=== PATIENT | female | born 1955 | race Caucasian/White ===

== ENCOUNTER 2023-05-14 08:36 | Outpatient (CLI) | payer OTHER, MEDICARE, SELFPAY | END 2023-05-14 08:37 | disposition home or self-care (01) | LOC: NFLDREF 05-15 13:47 | PROVIDERS: PCP Internal Medicine; Referring Provider Internal Medicine; Visit Provider Internal Medicine | DX: E11.9 Type 2 diabetes mellitus without complications (principal); E03.9 Hypothyroidism, unspecified; E66.9 Obesity, unspecified; I10 Essential (primary) hypertension; F41.9 Anxiety disorder, unspecified; E78.5 Hyperlipidemia, unspecified | CPT/HCPCS: 80053; 80061; 82043; 82570; 84443 ==

== ENCOUNTER 2024-03-08 10:02 | Outpatient (CLI) | payer MEDICARE, SELFPAY ==
--- OUTSIDE RECORDS SUMMARY | 2024-03-08 10:05 | XMS_ITS | Clinical Summary ---
Author Name Unknown Organization [facility] Address [place], [place] [address] Care Team Providers Care Piece Dyeing Machine Tender Name Role Phone Unknown, Doctor Primary Care Provider Unavailabl e Allergies Active Allergy Reactions Criticality Noted Date Comments Venom-Honey Bee Edema 03/12/2011 On extremity of sting Levofloxacin Muscle Weakness 09/09/2011 Muscle pain Morphine Itching 01/10/2010 Sulfa (Sulfonamide Antibiotics) Hives 01/10/2010 Medications Medication Sig Dispensed Refills Start Date End Date Status EPINEPHrine (EPIPEN) 0.3 mg/0.3 mL injection Inject 0.3 mg intramuscular one time if needed for Allergic Reaction. 3 mL 3 03/13/2012 Active omega-3 fatty acids-vitamin E (FISH OIL) 1,000 mg cap Take by mouth. 0 07/03/2012 Ac tive Cranberry 400 mg capsule Take by mouth. 0 05/19/2013 Active cholecalciferol (VITAMIN D) 1,000 unit capsule Take 1 capsule by mouth once daily. 0 08/23/2013 Active triamterene-hydrochlo rothiazide, 37.5-25 mg, (DYAZIDE) 37.5-25 mg capsule Take 1 capsule by mouth every morning. 14 capsule 0 11/16/2013 Active fenofibrate nanocrystallized (TRICOR) 145 mg tabletIndications:Hyp erlipidemia TAKE 1 TABLET DAILY WITH A MEAL 90 tablet 1 11/26/2013 Active levothyroxine (SYNTHROID) 50 mcg tabletIndications:Hyp othyroidism TAKE 1 TABLET DAILY (NEED APPOINTMENT BEFORE NEXT REFILL) 90 tablet 1 01/06/2014 Active omeprazole (PRILOSEC) 20 mg capsuleIndications:Ep igastric abdominal pain Take 1 capsule by mouth once daily before a meal. 30 capsule 0 03/07/2014 Active Active Problems Problem Noted Date Diagnosed Date Essential hypertension, benign 07/04/2012 Breast cancer 01/10/2010 Urinary incontinence 01/10/2010 Hypothyroidism 01/10/2010 Hyperlipidemia 01/10/2010 Routine health maintenance 01/10/2010 Overview: Physical Pre op 08/31/2009 Pap 12/21/08 Breast Exam 12/21/08 Mammo-double Mastectomy 2003 Chol 07/10/09 168 LDL 07/10/2009 101 Colonoscopy 09/09/2008 Polyps Immunizations Name Administration Dates Next Due Hepatitis A (Adult) 12/31/1999,12/07/1997 Tdap 10/22/2007 Family History Medical History Relation Name Comments Good Health Father Cancer-breast Mother Hypertension Mother Relation Name Status Comments Father Alive Mother Alive Social History Tobacco Use Types Packs/Day Years Used Date Smoking Tobacco: Never Smokeless Tobacco: Never Tobacco Cessation:Counseling Given: No Alcohol Use Standard Drinks/Week Comments Yes 0 (1 standard drink = 0.6 oz pur e alcohol) Minimal to none Sex and Gender Information Value Date Recorded Sex Assigned at Not on file Gender Identity Not on file Sexual Orientation Not on file Obstetrics History Last Filed Vital Signs Vital Sign Reading Time Taken Comments Blood Pressure 120/88 03/07/2014 9:46 PM CDT Pulse 68 03/07/2014 9:46 PM CDT Temperature 36.9 ??C (98.5 ??F) 03/07/2014 9:46 PM CD T Respiratory Rate 12 03/07/2014 9:46 PM CDT Oxygen Saturation 96% 03/07/2014 9:46 PM CDT Inhaled Oxygen Concentration - - Weight 95.7 kg (211 lb) 03/07/2014 9:46 PM CDT Height 157.5 cm (5' 2.01) 03/07/2014 9:46 PM CD T Body Mass Index 38.58 03/07/2014 9:46 PM CDT Plan of Treatment Health Maintenance Due Date Last Done Comments Depression screening for age 12+ 1968 BMI (ht and wt on same day) for age 18+ 1974 Hepatitis C screening for ag e 18-79 1974 Zoster (shingles) series for age 50+ (1 of 2) 2006 Tetanus booster 10/22/2017 10/22/2007 Lipids for age 45-75 05/24/2018 05/24/2013, 03/13/2012, 03/14/2011, Additional history exists Colonoscopy through age 75 09/09/2018 09/09/2008 DEXA/DXA scan for age 65+ 2021 Pneumococcal series for age 65+ (1 of 1 - PCV) 2021 COVID-19 vaccine series (1 - 2022- season) 2023 Influenza for age 65+ 06/20/2024 Tdap Completed 10/22/2007 Procedures Procedure Name Priority Date/Time Associated Diagnosis Comments LIPID PANEL Routine 05/24/2013 10:58 AM CDT Hyperlipidemia from Last 3 Months or Most Recently Relevant to Health Maintenance Results * (ABNORMAL) LIPID PANEL (05/24/2013 10:58 AM CDT) CHOLESTEROL,TOTA L 195 100 - 199 mg/dL [facility] TRIGLYCERIDES 215(H) <150 mg/dL [facility] HDL CHOLESTEROL 40(L) >40 mg/dL [facility] CHOL/HDL RATIO 4.88(H) <4.50 [facility] NON-HDL CHOLESTEROL 155 Undefined mg/dL [facility] LDL CHOLESTEROL 112 <131 mg/dL [facility] PATIENT STATUS Fasting [facility] Blood specimen (specimen) BLOOD SPECIMEN / Unknown 05/24/2013 10:58 AM CDT 05/24/2013 10:44 AM CDT Jorge Varner MD CHEMISTRY [facility] INTERNAL ZIP [address] [place] [id number] from Last 3 Months or Most Recently Relevant to Health Maintenance Care Teams Piece Dyeing Machine Tender Relationship Specialty Start Date End Date Unknown, Doctor . PCP - General 07/09/18
[2024-03-08 10:53] LABS: Hemoglobin A1C* 9.5 % (0-5.6)
[2024-03-08 12:10] LABS: Creatinine Urine 212.5 mg/dL
[2024-03-08 12:13] LABS: Microalbumin Creatinine Ratio 20 mg/g (0-30); Microalbumin Urine 5 mg/dL
[2024-03-08 13:19] LABS: Albumin* 4.8 g/dL (3.3-5.0); Chloride* 101 mmol/L (96-114); Sodium* 139 mmol/L (135-149)
[2024-03-08 13:20] LABS: Potassium* 4.2 mmol/L (3.6-5.1)
[2024-03-08 13:22] LABS: Alanine Aminotransferase* 37 U/L (4-35); Alkaline Phosphatase* 110 U/L (40-150); Anion Gap 9 mEq/L (7-15); Aspartate Amino Transferase* 50 U/L (12-35); Bilirubin Total* 1.2 mg/dL (0.1-1.5); Blood Urea Nitrogen* 16 mg/dL (7-30); Carbon Dioxide* 29 mmol/L (20-32); Creatinine* 0.7 mg/dL (0.5-1.5); Estimated Glomerular Filt Rate 95 ml/min; Glucose* 287 mg/dL (60-115); Total Protein* 8.5 g/dL (6.0-8.3)
[2024-03-08 13:23] LABS: Calcium* 9.5 mg/dL (8.4-10.6)
[2024-03-09 09:52] LABS: HDL Cholesterol* 37 mg/dL (>=50)
[2024-03-09 09:54] LABS: Cholesterol* 188 mg/dL (90-199); LDL Cholesterol Calculated 105 mg/dL (<100); Triglycerides* 228 mg/dL (40-149)
== END 2024-03-08 10:03 | disposition home or self-care (01) ==
PROVIDERS: PCP Internal Medicine; Visit Provider Internal Medicine
DX: E03.9 Hypothyroidism, unspecified (principal); E11.9 Type 2 diabetes mellitus without complications; E78.5 Hyperlipidemia, unspecified; I10 Essential (primary) hypertension
CPT/HCPCS: 80053; 80061; 82043; 82570; 83036; 84443

== ENCOUNTER 2024-09-24 13:37 | Outpatient (CLI) | payer MEDICARE, SELFPAY ==
--- NOTE | 2024-09-24 14:00 | CRLHL7_ITS ---
For Patients: As a result of the Century Cures Act, medical imaging exams and procedure reports are released immediately into your electronic medical record. You may view this report before your referring provider. If you have questions, please contact your health care provider. Indication: Headaches. Anosmia. Technique: Noncontrast axial CT of the paranasal sinuses with coronal reformats are provided. No comparisons. Findings: The visualized paranasal sinuses are clear. The ostiomeatal complexes are patent bilaterally. The visualized intraorbital contents appear within normal limits. No convincing evidence of suspicious irregularity disrupting the cribriform plate. Impression: Unremarkable CT of the paranasal sinuses. Please note that all CT scans at this facility use dose modulation, iterative reconstruction, and/or weight-based dosing when appropriate to reduce radiation dose to as low as reasonably achievable. Dictated by Jf Galvez MD @ 09/24/2024 2:39:51 PM (Electronically Signed)
== END 2024-09-24 13:38 | disposition home or self-care (01) ==
PROVIDERS: PCP Internal Medicine; Visit Provider Otolaryngology
DX: R43.0 Anosmia (principal); R51.9 Headache, unspecified
CPT/HCPCS: 70486

== ENCOUNTER 2025-05-19 11:13 | Outpatient (CLI) | payer MEDICARE, SELFPAY | END 2025-05-19 11:14 | disposition home or self-care (01) | PROVIDERS: PCP Internal Medicine; Visit Provider Internal Medicine | DX: E03.9 Hypothyroidism, unspecified (principal); E11.65 Type 2 diabetes mellitus with hyperglycemia | CPT/HCPCS: 80053; 80061; 82043; 82570; 84443 ==

== ENCOUNTER 2025-07-16 21:01 | Inpatient (IN) | payer MEDICARE, SELFPAY ==
--- OUTSIDE RECORDS SUMMARY | 2008-09-09 05:46 | XMS_ITS | Continuity of Care Document ---
Author Organization [facility] Address [address] [address] [place] [address] Phone Care Team Providers Care System Integration Engineer Name Role Phone Adarsh Perez MD Unavailable Unavailable Allergies, Adverse Reactions, Alerts Substance Reaction Status Criticality morphine rash, stomach ache, vomiting Active No Information Sulfa (Sulfonamide Antibiotics) hives Active No Information WARNIN allergy(ies) could not be collected because the type is not supported. Please contact the source practice for further details. Medications Medication Instructions Dosage Effective Dates (start - stop) Status Comments Aspirin Low Dose 81 mg Tab, Delayed Release Take one tablet by mouth daily - Active Tricor 145 mg Tab Take one tablet by mouth daily - Active tamoxifen 10 mg Tab Take two tablets by mouth daily - Active Synthroid 50 mcg Tab Take one tablet by mouth daily - Active Procedures Procedure Date Colonoscopy Flex; W/remov Les- 08 Colonoscopy Flex; W/bx 1/mx Level Iv-surg Path Gross/micro 08 Advance Directives Directive Yes / No Effective Date File Name No Information Encounters Encounter Description Practice Location Reason(s) For Visit Diagnoses Date Provider Providers Copied on Encounter [facility], [address] [address], [place], [id number], [place] tel:[phone] Skip [facility] Colon Cancer ScreeningPseudopoly posis Of ColonBenign Neoplasm Lg Bowel Nov-200 8 Chris Altamirano. [address] [facility], [address], [place], [place], [id number] , [place]. tel:[phone] Family History Family Member Type Diagnosis Age At Onset No Information Payers Payer name Insurance type Covered green party ID Authoriza tion(s) No Information Social History Type Description Quantity Date Captured Comments Sex Female Smoking Status No Information Chief Complaint And Reason For Visit No Information Reason For Referral Reason For Referral No Information History Of Present Illness Encounter Date Complaint History Of Prese nt Illness No Information Functional Status Date Functional Assessmen t No Information Instructions Date Instruction Additional Infor mation No Information Assessments Type Assessment Date No Information Patient Care Teams Name Effective Dates (start - stop) Status Members No Information
--- OUTSIDE RECORDS SUMMARY | 2008-09-09 05:46 | XMS_ITS | Continuity of Care Document ---
Author Organization [facility] Address [address] [address] [place] [address] Phone Care Team Providers Care Treating And Pumping Supervisor Name Role Phone Adarsh Perez MD Unavailable [...] Diagnoses Date Provider Providers Copied on Encounter [facility], [address] [address], [place], [id number], [place] tel:[phone] Skip [facility] Colon Cancer ScreeningPseudopoly posis Of ColonBenign Neoplasm Lg Bowel Nov-200 8 Chris Altamirano. [address] [facility], [address], [place], [place], [id number] , [place]. tel:[phone] Family History Family Member Type Diagnosis Age At Onset No Information Payers Payer name Insurance type Covered constitution party ID Authoriza tion(s) No Information Social [...]
--- OUTSIDE RECORDS SUMMARY | 2025-07-16 21:03 | XMS_ITS | Clinical Summary ---
Author Organization [facility] Address [facility] [place] [address] Care Team Providers Care Home Care Rn Name Role Phone Unknown, Doctor Primary Care Provider Unavailabl e Allergies Active Allergy Reactions Criticality Noted Date Comments Venom-Honey Bee Edema 03/12/2011 On extremity of sting Levofloxacin Muscle Weakness 09/09/2011 Muscle pain Morphine Itching 01/10/2010 Sulfa (Sulfonamide Antibiotics) Hives 01/10/2010 Medications EPINEPHrine (EPIPEN) 0.3 mg/0.3 mL injection Inject 0.3 mg intramuscular one time if needed for Allergic Reaction. 3 mL 3 03/13/20 12 Active omega-3 fatty acids-vitamin E (FISH OIL) 1,000 mg cap Take by mouth. 0 07/03/20 12 Active Cranberry 400 mg capsule Take by mouth. 0 05/19/20 13 Active cholecalciferol (VITAMIN D) 1,000 unit capsule Take 1 capsule by mouth once daily. 0 08/23/20 13 Active triamterene-hydroch lorothiazide, 37.5-25 mg, (DYAZIDE) 37.5-25 mg capsule Take 1 capsule by mouth every morning. 14 capsule 0 11/16/19 14 Active fenofibrate nanocrystallized (TRICOR) 145 mg tabletIndications:H yperlipidemia TAKE 1 TABLET DAILY WITH A MEAL 90 tablet 1 11/26/19 14 Active levothyroxine (SYNTHROID) 50 mcg tabletIndications:H ypothyroidism TAKE 1 TABLET DAILY (NEED APPOINTMENT BEFORE NEXT REFILL) 90 tablet 1 01/07/20 14 Active omeprazole (PRILOSEC) 20 mg capsuleIndications: Epigastric abdominal pain Take 1 capsule by mouth once daily before a meal. 30 capsule 0 03/07/20 14 Active Active Problems Problem Noted Date Diagnosed Date Essential hypertension, benign 07/04/2012 Breast cancer 01/10/2010 Urinary incontinence 01/10/2010 Hypothyroidism 01/10/2010 Hyperlipidemia 01/10/2010 Routine health maintenance 01/10/2010 Overview (01/10/2010): Physical Pre op 08/31/2009 Pap 12/21/08 Breast Exam 12/21/08 Mammo-double Mastectomy 2002 Chol 07/10/09 168 LDL 07/10/2009 101 Colonoscopy 09/09/2008 Polyps Immunizations Immunization Administration Dates Next Due Hepatitis A (Adult) [...] oz pur e alcohol) Minimal to none Comments No Sex and Gender Information Value Date Recorded Sex Assigned at Not on file Legal Sex 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 Gender Identity Not on file Sexual Orientation Not on file Obstetrics History Last Filed Vital Signs Vital Sign Reading Time Taken Comments Blood Pressure 120/88 03/07/2014 9:46 PM CDT Pulse 68 03/07/2014 9:46 PM CDT Temperature 36.9 C (98.5 F) 03/07/2014 9:46 PM CDT Respiratory Rate 12 03/07/2014 9:46 PM CDT [...] age 18+ 1974 Hepatitis C screening for age 18-79 1974 Pneumococcal series for age 50+ (1 of 1 - PCV) 2006 Zoster (shingles) series for age 50+ (1 of 2) 2006 Tetanus booster 10/22/2017 10/22/2007 Lipids for age 45-75 05/24/2018 05/24/2013, 03/13/2012, 03/14/2011, Additional history exists Colonoscopy through age 75 09/09/2018 09/09/2008 DEXA/DXA scan for age 65+ 2021 COVID-19 vaccine series ( - season) 2025 Influenza Vaccine (#1) 2025 RSV vaccine for adults or (1 - 1-dose 75+ series) 2031 Hepatitis B series for 19+ Aged Out N o longer eligible based on patient's age to complete this topic Procedures Procedure Name Priority Date/Time Associated Diagnosis Comments LIPID PANEL Routine 05/24/2013 10:58 AM CDT Hyperlipidemia from Last 3 Months or Most Recently Relevant to Health Maintenance Results * (ABNORMAL) LIPID PANEL (05/24/2013 10:58 AM CDT) CHOLESTEROL,TOTA L 195 100 - 199 mg/dL [facility] TRIGLYCERIDES 215(H) <150 mg/dL [facility] HDL CHOLESTEROL 40(L) >40 mg/dL [facility] CHOL/HDL RATIO 4.88(H) <4.50 [facility] NON-HDL CHOLESTEROL 155 Undefined mg/dL [facility] LDL CHOLESTEROL 112 <131 mg/dL [facility] PATIENT STATUS Fasting [facility] Blood specimen (specimen) BLOOD SPECIMEN / Unknown 05/24/2013 10:58 AM CDT 05/24/2013 10:44 AM CDT us Jorge Varner MD CHEMISTRY Final Resu lt [facility] INTERNAL ZIP [address] [place], [place] [id number] from Last 3 Months or Most Recently Relevant to Health Maintenance [facility] [place] [place] Care Teams Home Care Rn Relationship Specialty Start Date End Date Unknown, Doctor . PCP - General 07/09/18
[2025-07-16 21:13] VITALS: BP 134/84; PULSE 82; RESP 18; TEMP 36.7; O2SAT 98; BMI 32.9
--- NOTE | 2025-07-16 21:20 | ED.GENADULT ---
HPI - General Adult General Time Seen by Provider: 21:20 Date Seen: 07/16/25 Chief complaint: Weakness Stated complaint: L side weakness, feet cold Time Seen by Provider: 07/16/25 21:18 Source: patient, family and old records reviewed Mode of arrival: ambulatory Limitations: no limitations History of Present Illness HPI narrative: 70-year-old female here with weakness. Last known well was 2 weeks ago. Patient recently traveled to [place], when she 1st got there she was diagnosed with urinary tract infection, started on Macrobid and subsequently switched to cephalexin. Noted since that time she has had increased weakness and difficulty walking, also feels like her feet are cold and numbness in her arms, symptoms are predominantly on her left. She denies chest pain, head pain, says her vision is blurry but not double, denies nausea, vomiting, diarrhea. Denies headache or head injury. Related Data Home Medications ?Medication ?Instructions ?Recorded ?Confirmed lactobacillus combination no.9 4 4,000 mmu cells PO QDAY 05/20/23 05/19/25 billion cell capsule (Adult 50 Plus Probiotic) cholecalciferol (vitamin D3) 250 250 mcg PO QDAY 05/19/25 05/19/25 mcg (10,000 unit) capsule Previous Rx's ?Medication ?Instructions ?Recorded fenofibrate nanocrystallized 145 145 mg PO QDAY #90 tabs 12/02/24 mg tablet (Tricor) levothyroxine 50 mcg tablet 50 mcg PO DAILY #90 tabs 12/02/24 sertraline 100 mg tablet 150 mg (1.5 x 100 mg) PO QDAY #135 05/19/25 tabs semaglutide 1 mg/dose (4 mg/3 mL) 1 mg (0.75 mL) subcut QWEEK #3 mL 05/26/25 subcutaneous pen injector triamterene 37.5 1 cap PO QAM #90 caps 06/01/25 mg-hydrochlorothiazide 25 mg capsule Allergies Allergy/AdvReac Type Severity Reaction Status Date / Time bee venom protein (honey bee) Allergy Severe swelling Verified 05/19/25 10:48 levofloxacin Allergy Intermediate itching Verified 05/19/25 10:48 ciprofloxacin Allergy Mild itchy Verified 05/19/25 10:48 morphine Allergy Mild breathing Verified 05/19/25 10:48 difficulty nitrofurantoin Allergy Mild itchy Verified 05/19/25 10:48 Sulfa (Sulfonamide Allergy Mild swelling Verified 05/19/25 10:48 Antibiotics) Bee venom Allergy Mild Swelling Uncoded 05/19/25 10:48 of Lip/Tongue/Throat PFSH PFS Medical History (Updated 07/16/25 @ 23:52 by Mahad Garcia MD) History of breast cancer ?Z85.3 - Personal history of malignant neoplasm of breast (ICD-10) History of renal calculi (2019) ?Z87.442 - Personal history of urinary calculi (ICD-10) Surgical History (Updated 05/19/25 @ 11:19 by Fide Coyne MD) History of basal cell carcinoma excision ?Z98.890 - Other specified postprocedural states (ICD-10) ?Z85.828 - Personal history of other malignant neoplasm of skin (ICD-10) History of bladder repair surgery ?Z98.890 - Other specified postprocedural states (ICD-10) History of ankle surgery ?Z98.890 - Other specified postprocedural states (ICD-10) History of umbilical hernia repair ?Z98.890 - Other specified postprocedural states (ICD-10) ?Z87.19 - Personal history of other diseases of the digestive system (ICD-10) History of total abdominal hysterectomy and bilateral salpingo-oophorectomy (2009) ?Z90.710 - Acquired absence of both cervix and uterus (ICD-10) ?Z90.722 - Acquired absence of ovaries, bilateral (ICD-10) ?Z90.79 - Acquired absence of other genital organ(s) (ICD-10) History of bilateral mastectomy (2002) ?Z90.13 - Acquired absence of bilateral breasts and nipples (ICD-10) Social History (Updated 05/19/25 @ 12:51 by Rossi Rodriguez ~ [facility]) What is your current living situation?: I presently have a place to live Problems where you live: no known problems In the past 12 months, utilities in danger of being shut off: no In past 12 months, lack of transportation kept you from medical appts, meetings, work, or getting things needed for daily living: no In the past 12 mos, have been you worried that your food would run out before you had money to buy more?: never true In the past 12 mos, the food you bought just didn't last and you didn't have money to buy more?: never true Smoking Status: Never smoker How often does anyone, including family, friends and others, physically hurt you: never How often does anyone, including family, friends and others, insult or talk down to you: never How often does anyone, including family, friends and others, threaten you with harm: never How often does anyone, including family, friends and others, scream or curse at you: never Exam Narrative: Exam Narrative: General: Well-developed and well-nourished, no acute distress Head: Atraumatic and normocephalic Eyes: Pupils are equal reactive, extraocular motions intact, conjunctiva clear ENT: External nose and ears are normal, posterior pharynx without erythema or exudate Neck: No midline cervical tenderness, full spontaneous range of motion the neck, trachea midline, no adenopathy Heart: Regular rate and rhythm no murmurs or thrills Lungs: Clear to auscultation bilaterally without wheezes or crackles Abdomen: Soft, nontender, nondistended with active bowel sounds Musculoskeletal: No tenderness, deformity, or edema Neurologic: Awake, alert, and oriented x3, slightly slow response to questions. Slurred speech, slight left lower facial droop, decreased sensation of the left upper face. Left arm drift. Left leg weak, able to lift up against gravity put cannot maintain. Psych: Mood and affect are appropriate Skin: No rashes Const: Vital Signs, click to edit/add: Vital Signs - 24 hr 07/16/25 21:13 Temperature 98.1 F Pulse Rate [Pulse Oximeter] 82 Respiratory Rate 18 Blood Pressure [Ri ght Upper Arm] 134/84 Pulse Oximetry 98 Oxygen Delivery Me thod Room Air Course Course ED Course: Patient seen examined, presents today with weakness she has been going on for couple weeks, also fuzzy thinking, blurry vision. Weakness is predominantly in the left leg, also some numbness in the arms predominantly on the left. On exam here, patient is finally stable, she has decreased sensation the left forehead, slight left facial droop, predominant left leg weakness with slight left arm weakness as well. Concern for possible acute CVA, consider electrolyte disturbance, intracranial hemorrhage as well. Labs and CT scan are ordered. Reevaluation(s) Time of Reevaluation #1: 23:25 Reevaluation #1: Labs independently interpreted by me with normal CBC, mild hypokalemia which was replaced orally, hyperglycemia without evidence of DKA, urinalysis without evidence of bacteria. EKG independently interpreted by me performed at 9:33 p.m. demonstrates sinus rhythm first-degree AV block rate 75, right bundle-branch block, no acute ischemic changes, NH 216, QTC 489, no prior for comparison. Time of Reevaluation #2: 23:50 Reevaluation #2: Care discussed with Dr. Taylor, neurology. Recommends full strength aspirin now on 81 mg daily, MRI when available. Patient will be admitted for further stroke workup as well as PT/OT eval to determine home safety and possible short-term rehab placement given difficulty walking. Time of Reevaluation #3: 00:02 Reevaluation #3: Care discussed with Dr. Hansen, hospitalist for admission. Vital Signs Vital signs: Initial Vital Signs Temperature 98.1 F 07/16/25 21:13 Temperature Source Temporal Artery Scan 07/16/25 21:13 Pulse Rate 82 07/16/25 21:13 Respiratory Rate 18 07/16/25 21:13 Blood Pressure 134/84 07/16/25 21:13 Blood Pressure Mean 100 07/16/25 21:13 Blood Pressure Position Sitting 07/16/25 21:13 Pulse Oximetry 98 07/16/25 21:13 Oxygen Delivery Method Room Air 07/16/25 21:13 Vital Signs Temperature 98.1 F 07/16/25 21:13 Pulse Rate 82 07/16/25 21:13 Respiratory Rate 18 07/16/25 21:13 Blood Pressure 134/84 07/16/25 21:13 Pulse Oximetry 98 07/16/25 21:13 Oxygen Delivery Method Room Air 07/16/25 21:13 Temperature 98.1 F 07/16/25 21:13 Pulse Rate 82 07/16/25 21:13 Respiratory Rate 18 07/16/25 21:13 Blood Pressure 134/84 07/16/25 21:13 Pulse Oximetry 98 07/16/25 21:13 Oxygen Delivery Method Room Air 07/16/25 21:13 Medical Decision Making Lab Data Labs: Lab Results 07/16/25 07/16/25 Range/Units 21:43 21:59 WBC 6.80 (4.50-11.00) K/uL RBC 4.68 (4.00-5.20) m/uL Hgb 14.6 (12.0-16.0) gm/dL Hct 42.3 (33.0-51.0) % MCV 90 (80-100) fL MCH 31 (26-34) pg MCHC 35 (32-36) gm/dL RDW Coeff of Krystle 12.5 (11.5-15.5) % Plt Count 232 (140-440) K/uL Neut % (Auto) 54.3 (42.0-72.0) % Lymph % (Auto) 35.7 (20-44) % [place] % (Auto) 5.9 (0.0-11.0) % Eos % (Auto) 3.4 (0.0-7.0) % Baso % (Auto) 0.4 (0.0-3.0) % Neut # (Auto) 3.69 (1.7-7.0) K/uL Lymph # (Auto) 2.43 (0.90-2.90) K/uL [place] # (Auto) 0.40 (0.00-0.90) K/UL Eos # (Auto) 0.23 (0.00-0.50) K/uL Baso # (Auto) 0.03 (0.00-0.30) K/uL Abs Immat Gran (auto) 0.02 (0.00-0.30) K/uL Imm/Tot Granulo (auto) 0.3 % Sodium 139 (135-149) mmol/L Potassium 3.0 L (3.6-5.1) mmol/L Chloride 99 (96-114) mmol/L Carbon Dioxide 29 (20-32) mmol/L Anion Gap 11 (7-15) mEq/L BUN 21 (7-30) mg/dL Creatinine 1.2 (0.5-1.5) mg/dL Estimated Creat Clear 34.99 Estimated GFR 49 ml/min Glucose 169 H (60-115) mg/dL Calcium 9.6 (8.4-10.6) mg/dL Magnesium 2.0 (1.5-2.6) mg/dL Urine Color Yellow (Yellow) Urine Appearance Clear (Clear) Urine pH 7.0 (5.0-8.5) Ur Specific [place] 1.020 (1.000-1.030) Urine Protein Negative (Negative) Urine Glucose (UA) Negative (Negative) Urine Ketones Negative (Negative) Urine Blood Negative (Negative) Urine Nitrite Negative (Negative) Urine Bilirubin Negative (Negative) Urine Urobilinogen 1.0 (0.2-1.0) Ur Leukocyte Esterase Trace A (Negative) Urine RBC 0-2 (0-2) Urine WBC 2-5 (0-5) Ur Squamous Epith Cells None (None-Few) Urine Bacteria Few A (None) Discharge Plan Discharge Clinical Impression: Ataxia, Hyperlipidemia, Essential hypertension, Stroke-like symptoms Type 2 diabetes mellitus Qualifiers: Diabetes mellitus sales agent [employer] insurance insulin use: without sales agent [employer] insurance use Diabetes mellitus complication status: with hyperglycemia Qualified Code(s): E11.65 - Type 2 diabetes mellitus with hyperglycemia Patient Disposition: Admitted As Inpatient
--- NOTE | 2025-07-16 21:43 | CT_ITS ---
Patient: ALONZO SIMMONS Facility:?[facility] Patient ID:?[id number] Site Patient ID:?[id number]. Site :?[id number] Study:?CT-Neck Angio CTA NECK W/ISOVUE 370 95CC-07/16/2025 11:07:29 PM Ordering Physician:Radha Tobin Final Report: DATE: 07/16/2025 CLINICAL HISTORY: Patient with focal neurological deficits. TECHNIQUE: Standard helical CT image acquisition through the head and neck was performed after intravenous contrast bolus enhancement. 2D and 3D MIP images for post- processing were performed and interpreted on an independent workstation and 3D images were permanently archived. COMPARISON: None. FINDINGS: The origins of the great vessels from the aortic arch are patent. The origin of the right vertebral artery is patent. The origin of the left vertebral artery is patent. The common carotid arteries are patent There is no stenosis at the origin of the right internal carotid artery. There is no stenosis at the origin of the left internal carotid artery. The rest of the cervical segments of the internal carotid arteries are patent up to their intracranial segments. The intracranial segments of the internal carotid arteries are patent. The left vertebral artery is dominant. The cervical segments of the vertebral arteries are patent. The intracranial segments of the vertebral arteries are patent. There is regional hypervascularity in the right Sylvian fissure and periventricular white matter bilaterally, most pronounced in the right Sylvian fissure. The middle cerebral arteries are normal without aneurysm or proximal occlusion identified. The anterior cerebral arteries are normal without aneurysm or proximal occlusion identified. The anterior communicating artery is well visualized and appears normal. The basilar artery is normal without aneurysm or occlusion. The posterior cerebral arteries are normal without aneurysm or proximal occlusion. There is normal opacification of major intracranial venous structures. The visualized lung apices are unremarkable The thyroid gland is unremarkable. The soft tissues of the neck are unremarkable. There are degenerative changes in the cervical spine. IMPRESSION: 1. Patent cervical and proximal intracranial vasculature. 2. Indeterminate areas of regional hypervascularity in the right Sylvian fissure and periventricular white matter bilaterally, most pronounced in the right Sylvian fissure. These could represent subacute infarcts with luxury perfusion, hypervascular metastases or vascular malformations such as developmental venous anomalies or arteriovenous malformations. Further evaluation with a brain MRI with contrast and brain MRA is recommended. Depending on the findings in these follow-up studies, then a catheter angiogram may need to be performed. If necessary, arrangements for this to be performed by [facility]s Neurointerventional team can be made by calling . Andrew Felix M.D. Neurointerventional Radiologist [facility] [place] Pager: Office/Appointments: Answering Service: [facility]: Please note that all CT scans at this facility use dose modulation, iterative reconstruction, and/or weight-based dosing when appropriate to reduce radiation dose to as low as reasonably achievable. Dictated by Andrew Felix MD @ 07/17/2025 9:14:49 AM Signed by:?Andrew Felix MD @07/17/2025 9:14:49 AM (Electronic Signature)
--- NOTE | 2025-07-16 21:43 | CT_ITS ---
Patient: ALONZO SIMMONS Facility:?[facility] Patient ID:?[id number] Site Patient ID:?[id number]. Site :?[id number] Study:?CT-Head Angio CTA HEAD W/ISOVUE 370 95CC-07/16/2025 11:07:59 PM Ordering Physician:Radha Tobin Final Report: DATE: 07/16/2025 CLINICAL HISTORY: Patient with focal neurological deficits. TECHNIQUE: Standard helical CT image acquisition through the head and neck was performed after intravenous contrast bolus enhancement. 2D and 3D MIP images for post- processing were performed and interpreted on an independent workstation and 3D images were permanently archived. COMPARISON: None. FINDINGS: The origins of the great vessels from the aortic arch are patent. The origin of the right vertebral artery is patent. The origin of the left vertebral artery is patent. The common carotid arteries are patent There is no stenosis at the origin of the right internal carotid artery. There is no stenosis at the origin of the left internal carotid artery. The rest of the cervical segments of the internal carotid arteries are patent up to their intracranial segments. The intracranial segments of the internal carotid arteries are patent. The left vertebral artery is dominant. The cervical segments of the vertebral arteries are patent. The intracranial segments of the vertebral arteries are patent. There is regional hypervascularity in the right Sylvian fissure and periventricular white matter bilaterally, most pronounced in the right Sylvian fissure. The middle cerebral arteries are normal without aneurysm or proximal occlusion identified. The anterior cerebral arteries are normal without aneurysm or proximal occlusion identified. The anterior communicating artery is well visualized and appears normal. The basilar artery is normal without aneurysm or occlusion. The posterior cerebral arteries are normal without aneurysm or proximal occlusion. There is normal opacification of major intracranial venous structures. The visualized lung apices are unremarkable The thyroid gland is unremarkable. The soft tissues of the neck are unremarkable. There are degenerative changes in the cervical spine. IMPRESSION: 1. Patent cervical and proximal intracranial vasculature. 2. Indeterminate areas of regional hypervascularity in the right Sylvian fissure and periventricular white matter bilaterally, most pronounced in the right Sylvian fissure. These could represent subacute infarcts with luxury perfusion, hypervascular metastases or vascular malformations such as developmental venous anomalies or arteriovenous malformations. Further evaluation with a brain MRI with contrast and brain MRA is recommended. Depending on the findings in these follow-up studies, then a catheter angiogram may need to be performed. If necessary, arrangements for this to be performed by [facility]`s Neurointerventional team can be made by calling . Andrew Felix M.D. Neurointerventional Radiologist [facility] [place] Pager: Office/Appointments: Answering Service: [facility]: Please note that all CT scans at this facility use dose modulation, iterative reconstruction, and/or weight-based dosing when appropriate to reduce radiation dose to as low as reasonably achievable. Dictated by Andrew Felix MD @ 07/17/2025 9:15:24 AM Signed by:?Andrew Felix MD @07/17/2025 9:15:24 AM (Electronic Signature)
[2025-07-16 21:51] LABS: Appearance Urine Clear (Clear)
[2025-07-16 22:07] LABS: Hematocrit* 42.3 % (33.0-51.0); Hemoglobin* 14.6 gm/dL (12.0-16.0); Immature Granulocytes Abs Auto 0.02 K/uL (0.00-0.30); Immature Granulocytes Pct Auto 0.3 %; Lymphocytes Absolute Auto 2.43 K/uL (0.90-2.90); Mean Corpuscular HGB Conc 35 gm/dL (32-36); Mean Corpuscular Hemoglobin 31 pg (26-34); Mean Corpuscular Volume 90 fL (80-100); RDW Coefficient of Variation % 12.5 % (11.5-15.5); Red Blood Count* 4.68 m/uL (4.00-5.20); White Blood Count* 6.80 K/uL (4.50-11.00)
[2025-07-16 22:20] LABS: Slide Review Reflex No
[2025-07-16 22:21] LABS: Chloride* 99 mmol/L (96-114)
[2025-07-16 22:22] LABS: Potassium* 3.0 mmol/L (3.6-5.1); Sodium* 139 mmol/L (135-149)
[2025-07-16 22:25] LABS: Anion Gap 11 mEq/L (7-15); Blood Urea Nitrogen* 21 mg/dL (7-30); Calcium* 9.6 mg/dL (8.4-10.6); Carbon Dioxide* 29 mmol/L (20-32); Creatinine* 1.2 mg/dL (0.5-1.5); Est. Creatinine Clearance* 34.99; Estimated Glomerular Filt Rate 49 ml/min; Glucose* 169 mg/dL (60-115)
[2025-07-17] VITALS (16 sets, daily range): BP systolic 117–149; BP diastolic 74–96; PULSE 63–78; RESP 18; TEMP 36.4–36.7; O2SAT 95–97; BMI 33.6; BMI 33.7
[2025-07-17] MEDS: ASPIRIN 81 MG TAB.CHEW 324 MG PO (00:07)
--- NOTE | 2025-07-17 02:30 | W.PM.TELEH&P ---
Telehealth- H&P: HPI History of Present Illness Date Seen: 07/17/25 Chief complaint: L side weakness, feet cold Narrative: Jana Catalan is seen as an Interactive Telehealth visit. Jana Catalan is a 70 year old female with past medical history significant for HTN, HLP, type 2 diabetes, TED presented to emergency department with complaints of weakness. PT reports her symptoms initially started 2 weeks ago. She recently travelled to [place] where she was diagnosed with UTI. She reports during that time she started feeling very weak and started having balance problems. She reports she is unable to ride her bike, loosing balance easily when walking. Denies any dizziness or room spinning. She reports she has h/o vertigo however not experiencing those symptoms currently. Pt also reports she is having numbness and tingling throughout but worse on left side and worse in both feet. She also reports loss of taste and has been loosing weight very fast, she reports 10 lbs weight loss over these 2-3 weeks. Pt now presenting with overall worsening symptoms, and has been falling due to balance issues. She denies any chest pain, sob, abdominal pain, nausea/vomiting. She does report loss of taste. Workup in the emergency department showed WBC 6.8, hemoglobin 14.6, hematocrit 42.3, platelets 232. Sodium 139, potassium 3.0, chloride 99, bicarb 29, anion gap 11, BUN 21, creatinine 1.2, glucose 169, magnesium 2.0. TSH 2.4, albumin 4.5, triglycerides 202, cholesterol 177. UA showed trace leukocyte esterase. CT head and CTA head results reviewed. Final results pending. Neurology was consulted by ER and they recommended local admission with further work up including MRI, echo. Review of Systems Narrative: Complete ROS was performed, pertinent positives and negatives per HPI. [facility] Medical History (Updated 07/16/25 @ 23:52 by Mahad Garcia MD) History of breast cancer ?Z85.3 - Personal history of malignant neoplasm of breast (ICD-10) History of renal calculi (2019) ?Z87.442 - Personal history of urinary calculi (ICD-10) Surgical History (Updated 05/19/25 @ 11:19 by Fide Coyne MD) History of basal cell carcinoma excision ?Z98.890 - Other specified postprocedural states (ICD-10) ?Z85.828 - Personal history of other malignant neoplasm of skin (ICD-10) History of bladder repair surgery ?Z98.890 - Other specified postprocedural states (ICD-10) History of ankle surgery ?Z98.890 - Other specified postprocedural states (ICD-10) History of umbilical hernia repair ?Z98.890 - Other specified postprocedural states (ICD-10) ?Z87.19 - Personal history of other diseases of the digestive system (ICD-10) History of total abdominal hysterectomy and bilateral salpingo-oophorectomy (2009) ?Z90.710 - Acquired absence of both cervix and uterus (ICD-10) ?Z90.722 - Acquired absence of ovaries, bilateral (ICD-10) ?Z90.79 - Acquired absence of other genital organ(s) (ICD-10) History of bilateral mastectomy (2002) ?Z90.13 - Acquired absence of bilateral breasts and nipples (ICD-10) Social History (Updated 05/19/25 @ 12:51 by Rossi Rodriguez ~ [facility]) What is your current living situation?: I presently have a place to live Problems where you live: no known problems Problems where you live details: N/A In the past 12 months, utilities in danger of being shut off: no In past 12 months, lack of transportation kept you from medical appts, meetings, work, or getting things needed for daily living: no In the past 12 mos, have been you worried that your food would run out before you had money to buy more?: never true In the past 12 mos, the food you bought just didn't last and you didn't have money to buy more?: never true Highest level of school completed/degree received: Bachelor's degree Smoking Status: Never smoker Second hand tobacco smoke exposure: No How often do you have a drink containing alcohol: never How often do you have six or more drinks on one occasion: Never AUDIT-C Alcohol total score: 0 Non-prescribed substance use: denies use Caffeine: Yes How often does anyone, including family, friends and others, physically hurt you: never How often does anyone, including family, friends and others, insult or talk down to you: never How often does anyone, including family, friends and others, threaten you with harm: never How often does anyone, including family, friends and others, scream or curse at you: never service: No Meds Home Medications and Allergies Home Medications ?Medication ?Instructions ?Recorded ?Confirmed ?Type lactobacillus combination no.9 4 4,000 mmu cells PO QDAY 05/20/23 05/19/25 History billion cell capsule (Adult 50 Plus Probiotic) fenofibrate nanocrystallized 145 145 mg PO QDAY #90 tabs 12/02/24 05/19/25 Rx mg tablet (Tricor) levothyroxine 50 mcg tablet 50 mcg PO DAILY #90 tabs 12/02/24 05/19/25 Rx cholecalciferol (vitamin D3) 250 250 mcg PO QDAY 05/19/25 05/19/25 History mcg (10,000 unit) capsule sertraline 100 mg tablet 150 mg (1.5 x 100 mg) PO QDAY #135 05/19/25 05/19/25 Rx tabs semaglutide 1 mg/dose (4 mg/3 mL) 1 mg (0.75 mL) subcut QWEEK #3 mL 05/26/25 Rx subcutaneous pen injector triamterene 37.5 1 cap PO QAM #90 caps 06/01/25 Rx mg-hydrochlorothiazide 25 mg capsule Allergies Allergy/AdvReac Type Severity Reaction Status Date / Time bee venom protein (honey bee) Allergy Severe swelling Verified 05/19/25 10:48 levofloxacin Allergy Intermediate itching Verified 05/19/25 10:48 ciprofloxacin Allergy Mild itchy Verified 05/19/25 10:48 morphine Allergy Mild breathing Verified 05/19/25 10:48 difficulty nitrofurantoin Allergy Mild itchy Verified 05/19/25 10:48 Sulfa (Sulfonamide Allergy Mild swelling Verified 05/19/25 10:48 Antibiotics) Bee venom Allergy Mild Swelling Uncoded 05/19/25 10:48 of Lip/Tongue/Throat Exam Narrative Exam Narrative: Physical Exam GENERAL: ?vital signs reviewed, well developed and nourished, in no distress. laying in bed. HEENT: pupils are equal round and reactive to light, extraocular movements are grossly within normal limits and oral mucosa is moist. NECK: Supple HEART: Regular rate and rhythm without any rubs, murmurs, or gallops. LUNGS: Clear to auscultation bilaterally with good air movement throughout ABDOMEN: Observation from nurse assisted exam, abdomen appears soft, nontender, and nondistended with Positive bowel sounds noted. EXTREMITIES: Strength and sensation is observed to be grossly within normal limits in the upper and lower extremities.? No focal strength deficit is observed. SKIN:? Observed warm and dry with color normal Neuro: Pt is AAOX4. SHe is following all commands. No facial asymmetry, tongue midline. EOMI, NO nystagmus, Shoulder shrug intact. ABle to lift both arms and legs against resistence. Const Vital Signs, click to edit/add: Vital Signs - 24 hr 07/16/25 21:13 07/17/25 00:31 07/17/25 00:41 Temperature 98.1 F 97.9 F Pulse Rate [Left Pulse Oximeter] 75 Pulse Rate [Pulse Oximeter] 82 Respiratory Rate 18 18 18 Blood Pressure [Right Arm] 119/81 Blood Pressure [Right Upper Arm] 134/84 Pulse Oximetry 98 96 96 Oxygen Delivery Method Room Air Room Air Room Air Hospitalist - H&P: Result Labs Labs: Short CBC 07/16/25 Range/Units 21:59 WBC 6.80 (4.50-11.00) K/uL Hgb 14.6 (12.0-16.0) gm/dL Hct 42.3 (33.0-51.0) % Plt Count 232 (140-440) K/uL BMP 07/16/25 21:59 Sodium 139 Potassium 3.0 L Chloride 99 Carbon Dioxide 29 BUN 21 Creatinine 1.2 Glucose 169 H Calcium 9.6 Urine 07/16/25 Range/Units 21:43 Urine Color Yellow (Yellow) Urine Appearance Clear (Clear) Urine pH 7.0 (5.0-8.5) Ur Specific [place] 1.020 (1.000-1.030) Urine Protein Negative (Negative) Urine Glucose (UA) Negative (Negative) Assessment and Plan Assessment and plan (1) Stroke-like symptoms: Status: Acute (2) Ataxia: Status: Acute Plan Patient is presenting to emergency department with ataxia, loss of balance, weight loss, bilateral numbness and tingling worse on the left side. Patient reports symptoms started about 2 weeks ago however has been worsening and patient now having falls secondary to worsening balance. Plan - admit pt to general medical floor - Will need Mahad MRI with and without contrast to r/o CVA and malignancy due to her remote h/o Breast ca and findings on pre [place] CTA head report. - cont with neuro checks - cont with aspirin as recommended by neurology - Echo, tele monitroing - Pt/OT evaluation for dc planning. - IF BRAIn MRI is negative, may need to consult neurology to consider LP if symptoms persistent after electrolyte and fluid treatment and if MRI does not explain her symptoms. # Hypokalemia - replete and recheck in am. # Type 2 DM - on weekly ozympic - start sliding scale. # HTN - less likely an acute CVA so likely does not need permissive HTN. Resume bp medicatoins in am as bp tolerates. # Hypothyroidism # TED # HLP # DVT proph - lovenox Telehealth visit: Today's History and Physical is via Interactive Telehealth by Dr. Batsheva Badillo. Patient is located at [facility]. Physician is located at [facility]. Nursing staff Assisted with patient's exam. Visit being done today meets criteria for Telehealth visit and patient/guardian is aware that visit is Telehealth visit. Camera Start Time 0159 Camera End Time 0218 Telehealth: Statement Statement Telehealth Visit: Today's History and Physical is provided via interactive telehealth by Batsheva Badillo MD.? Patient is located at [facility].? Provider is located at [facility].? Nursing staff assisted with the patient's exam. The visit being done today meets criteria for a telehealth visit and the patient or patient?s parent/guardian is aware the visit is a telehealth visit. Camera Start Time: 01:59 Camera End Time: 02:19
[2025-07-17] MEDS: POTASSIUM CHLORIDE 10 MEQ/100 ML PIGGYBACK 100 MEQ IVPB ×3 (02:59→04:36)
[2025-07-17] MEDS: 0.9 % SODIUM CHLORIDE 500 ML 500 ML IV (03:00)
--- NOTE | 2025-07-17 04:55 | PC.NURSE ---
Shift note: Patient was brought to the floor at 0025 on a stretcher accompanied by . Conscious, alert and oriented on arrival. Vital signs monitored and recorded. Patient assisted with transfer from stretcher to bed with the help of A1 with a cane. Patient appeared unsteady when ambulating. She confirmed tingling sensation and numbness to both upper and lower extremities but worse on the left side of her body. Speech clear, no facial droop, equal strength in all extremities. Lungs sound clear, no SOB, HR regular, no murmurs and edema,. She denied N/V and abdominal pain. Skin warm, dry, no tear or rashes noted. No signs of confusion or distress. Initiated IV fluid with N/S and KCL as ordered. color television console monitor applied and MRI questionnaire signed with patient. Patient doing well on room air. Fall precaution instituted. Education on stroke including possible causes, signs and symptoms, potential management and treatment and possible complication given.
--- NOTE | 2025-07-17 05:16 | PC.NURSE ---
Shift note: Patient continue to be on 3L of Oxygen breath in CPAP. Oxygen saturation stable throughout shift, ranging from 88?91% at rest with no signs of acute respiratory distress. Lung sounds diminished bilaterally with no wheezing or crackles. Continue to have intermittent productive cough. Patient reports no pain at this shift. Patient denied shortness of breath. Ambulates independently in room without difficulty. No falls or safety concerns noted. CPAP used during sleep per routine and tolerated well with no complaints. No episodes of desaturation or apnea observed when with oxygen or CPAP. Alert and oriented, vitally stable. Skin intact, warm, and dry.
[2025-07-17] MEDS: LEVOTHYROXINE 50 MCG TABLET PO (07:04)
[2025-07-17] MEDS: ASPIRIN 81 MG TAB.CHEW PO (08:25)
[2025-07-17] MEDS: SODIUM CHLORIDE 0.9 % (FLUSH) 10 ML SYRINGE 5 ML IVF (08:28)
--- NOTE | 2025-07-17 15:08 | PM.IMPN1 ---
Assessment and Plan Assessment and plan (1) Stroke-like symptoms: Problem comment: - Patient is presenting to emergency department with ataxia, loss of balance, weight loss, bilateral numbness and tingling worse on the left side. Patient reports symptoms started about 2 weeks ago however has been worsening and patient now having falls secondary to worsening balance. Plan - admit pt to general medical floor - Will need [facility] MRI with and without contrast to r/o CVA and malignancy due to her remote h/o Breast ca and findings on pre [place] CTA head report. - cont with neuro checks - cont with aspirin as recommended by neurology - Echo, tele monitroing - Pt/OT evaluation for dc planning. - IF BRAIn MRI is negative, may need to consult neurology to consider LP if symptoms persistent after electrolyte and fluid treatment and if MRI does not explain her symptoms. - 07/17 echo obtained today which preliminarily is unremarkable, no PFO bubble study. MRI not available until tomorrow. Due to facial droop and paresthesia along with speech difficulties, will make patient NPO and have speech therapy evaluate tomorrow. I spoke with Dr. Arellano from tele neurology today regarding this patient after he had seen her in consultation via video. I have also reviewed his note in [employer]. He recommends continuing on daily low-dose aspirin, obtaining an MRI brain with and without contrast along with an MRI of her C-spine with and without contrast, therapy evaluation, keeping her normotensive (no permissive hypertension at this time considering that she is 2-3 weeks out from onset of symptoms), LDL goal less than 70, A1c goal less than 7%, monitoring on telemetry and obtaining an echo, which was done today. He would also like her to follow up with stroke clinic as an outpatient. Status: Acute (2) Ataxia: Problem comment: As above Status: Acute (3) Essential hypertension: Problem comment: She takes triamterene/hydrochlorothiazide as an outpatient, which I am holding since her blood pressure is normotensive without it and she came in hypokalemic. Status: Acute (4) Hyperlipidemia: Problem comment: Continue tricor Status: Acute (5) Type 2 diabetes mellitus: Problem comment: originally life-style controlled, Dxed 08/05, metformin started 03/08 (she stopped 03/12 due to loose stools), glipizide started 03/12, semaglutide started 10/12, glipizide stopped 05/13 - Checking HgbA1C, continue ISS Status: Acute (6) Hypothyroidism: Problem comment: Continue levothyroxine Status: Acute (7) Obstructive sleep apnea syndrome: Problem comment: Moderate TED, severe when supine, by PSG 07/03 Status: Acute (8) Obesity with body mass index 30 or greater: Status: Chronic (9) History of breast cancer: Problem comment: Left sided 2003, s/p bilateral mastectomy, radiation/chemotherapy/tamoxifen/femara Status: Chronic (10) Hypokalemia: Problem comment: Was given potassium replacement this morning. Will recheck in am. Status: Acute Total Time Spent Total Time Spent: Today I spent 40 minute seeing the patient, discussing with the tele neurologist over the phone, reviewing [facility] and [facility] notes/diagnostics/labs, discussing the care plan with our care team that includes social work, PT/OT, pharmacy, RT, long term and documenting my impressions and plan in the medical record. Subjective Time Seen by Provider: 08:22 Date Seen: 07/17/25 Interval history: Jana endorses persistent symptoms of weakness and paresthesias of her left side. He also notes some difficulty with word-finding and balance. 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 While she denies any trouble swallowing, she reports a 10 lb weight loss over these last 2-3 weeks since her symptoms started due to fatigue and loss of taste. Exam Narrative: Exam Narrative: General: No acute distress. Awake, alert, oriented x3. No pallor. No jaundice. I do not perceive any word-finding difficulties or slurred speech. Oropharynx: Clear. Mucous membranes moist. Cardiovascular: Regular rate and rhythm. No murmurs, gallops, or rubs. Respiratory: Clear to auscultation bilaterally. No wheezes or crackles. Abdomen: Bowel sounds present. Soft, nondistended, nontender. Extremities: No lower extremity edema. Neuro: Actually notes some right facial droop, which is less apparent when she smiles. There is decreased sensation of the left lower face. Cranial nerves 2-12 are otherwise intact. Extraocular movements are full. No nystagmus. Tongue is midline. Left pronator drift is present. Strength is 1/5 in left lower extremity, she is unable to move her toes and unable to lift her leg off the bed, 2/5 in left upper extremity, 5/5 in right upper and lower extremities. Light touch sensation is diminished in left lower face, more so in left arm and left leg. Const: Vital Signs, click to edit/add: Vital Signs - 24 hr 07/16/25 21:13 07/17/25 00:31 07/17/25 00:41 Temperature 98.1 F 97.9 F Pulse Rate Pulse Rate [Left P ulse Oximeter] 75 Pulse Rate [Pulse Oximeter] 82 Respiratory Rate 18 18 18 Blood Pressure [Ri ght Arm] 119/81 Blood Pressure [Ri ght Upper Arm] 134/84 Pulse Oximetry 98 96 96 Oxygen Delivery Nm thod Room Air Room Air Room Air 07/17/25 02:29 07/17/25 02:44 07/17/25 02:48 Temperature 97.6 F Pulse Rate 67 Pulse Rate [Left P ulse Oximeter] 71 71 Pulse Rate [Pulse Oximeter] Respiratory Rate 18 Blood Pressure [Ri ght Arm] 121/74 Blood Pressure [Ri ght Upper Arm] Pulse Oximetry 95 Oxygen Delivery Nm thod Room Air 07/17/25 03:00 07/17/25 07:00 07/17/25 07:00 Temperature 97.6 F 98.1 F Pulse Rate Pulse Rate [Left P ulse Oximeter] 71 70 70 Pulse Rate [Pulse Oximeter] Respiratory Rate 18 18 18 Blood Pressure [Ri ght Arm] 121/74 143/96 H Blood Pressure [Ri ght Upper Arm] Pulse Oximetry 95 97 Oxygen Delivery Nm thod Room Air Room Air 07/17/25 07:00 07/17/25 10:48 07/17/25 11:00 Temperature 98 F Pulse Rate 63 Pulse Rate [Left P ulse Oximeter] 72 72 Pulse Rate [Pulse Oximeter] Respiratory Rate 18 Blood Pressure [Ri ght Arm] 119/80 Blood Pressure [Ri ght Upper Arm] Pulse Oximetry 95 Oxygen Delivery Nm thod Room Air 07/17/25 14:00 Temperature Pulse Rate Pulse Rate [Left P ulse Oximeter] 72 Pulse Rate [Pulse Oximeter] Respiratory Rate Blood Pressure [Ri ght Arm] Blood Pressure [Ri ght Upper Arm] Pulse Oximetry Oxygen Delivery Me thod Labs Labs: Laboratory Results - last 24 hr 07/16/25 07/16/25 21:43 21:59 WBC 6.80 RBC 4.68 Hgb 14.6 Hct 42.3 MCV 90 MCH 31 MCHC 35 RDW Coeff of Krystle 12.5 Plt Count 232 Neut % (Auto) 54.3 Lymph % (Auto) 35.7 [place] % (Auto) 5.9 Eos % (Auto) 3.4 Baso % (Auto) 0.4 Neut # (Auto) 3.69 Lymph # (Auto) 2.43 [place] # (Auto) 0.40 Eos # (Auto) 0.23 Baso # (Auto) 0.03 Abs Immat Gran (auto) 0.02 Imm/Tot Granulo (auto) 0.3 Sodium 139 Potassium 3.0 L Chloride 99 Carbon Dioxide 29 Anion Gap 11 BUN 21 Creatinine 1.2 Estimated Creat Clear 34.99 Estimated GFR 49 Glucose 169 H Calcium 9.6 Magnesium 2.0 Urine Color Yellow Urine Appearance Clear Urine pH 7.0 Ur Specific [place] 1.020 Urine Protein Negative Urine Glucose (UA) Negative Urine Ketones Negative Urine Blood Negative Urine Nitrite Negative Urine Bilirubin Negative Urine Urobilinogen 1.0 Ur Leukocyte Esterase Trace A Urine RBC 0-2 Urine WBC 2-5 Ur Squamous Epith Cells None Urine Bacteria Few A Progress Note: Quality Stroke Contraindication Not Initiating IV-Tpa: Not indicated (Outside treatment window) Onset of Symptoms Date: 06/30/25 Symptom Onset Unknown: Yes
--- NOTE | 2025-07-17 17:28 | PC.NURSE ---
Shift Note : Pt friendly and cooperative, able to verbalize her needs. Pt reports feeling fuzzy brain fog in her head, describes as feeling like its full of cotton balls. Notable mild weakness to LUE and moderate weakness in LLE. Pt also reports paraesthesias, stating it feels as though light touch on the left side is from a gloved hand. VS WNL, there is no HTN noted. Pt has been NPO until swallow eval can be completed. MRI anticipated for tomorrow.
[2025-07-17] MEDS: POTASSIUM CHLORIDE 40 MEQ in 0.9 % SODIUM CHLORIDE 1000 ml 1,000 ML 125 MEQ IV (17:51)
[2025-07-17] MEDS: ENOXAPARIN 40 MG/0.4 ML INJ SUBCUT (20:52)
[2025-07-17] MEDS: SERTRALINE 100 MG TABLET 150 MG PO (20:52)
[2025-07-18] VITALS (9 sets, daily range): BP systolic 122–140; BP diastolic 75–86; PULSE 64–79; RESP 16–18; TEMP 36.6–37.1; O2SAT 93–98
--- NOTE | 2025-07-18 | CRLHL7_ITS ---
For Patients: As a result of the 21st Century Cures Act, medical imaging exams and procedure reports are released immediately into your electronic medical record. You may view this report before your referring provider. If you have questions, please contact your health care provider. Indication: Loss of balance. Technique: MRI brain: Multiplanar multisequence MR imaging prior to and following intravenous administration of 15 mL Dotarem. MRA head: [id number] imaging. Comparison: CT sinus 09/24/2024. Findings: MRI brain: Multifocal infiltrative and masslike FLAIR hyperintensity involving the supratentorial and infratentorial parenchyma, including notable infiltrative signal extending across the corpus callosum body, as well as involving the posterior right centrum semiovale and paredes radiata, medial and dorsal thalami, central right temporal lobe and right temporal stem, and extending caudally along the right corticospinal tract to involve the right internal capsule posterior limb, right cerebral peduncle, midbrain, miguel, and medulla. Heterogeneous enhancement associated with the aforementioned right temporal signal abnormality measures 4.6 x 1.9 x 1.7 cm (AP/CC/TR) and demonstrates heterogeneous diffusion restriction. There is also ill-defined enhancement within the right centrum semiovale and paredes radiata. Stippled susceptibility in the central right temporal lobe may represent mineralization and/or minimal hemorrhage. Mild diffuse cerebral volume loss. No midline shift or hydrocephalus. No pathologic extra-axial fluid collection. No diffusion restriction to suggest acute infarction. The major arterial flow voids of the skull base are preserved. The globes are symmetric. Minimal ethmoid sinus mucosal thickening. Mastoid air cells are clear. MRA head: The internal carotid, middle cerebral, and anterior cerebral arteries are widely patent. The vertebral, basilar, and posterior cerebral arteries are widely patent. No intracranial aneurysm or high-flow vascular malformation. Impression: 1. Multifocal infiltrative and masslike FLAIR hyperintensity involving the supratentorial and infratentorial parenchyma, including notable signal abnormality extending across the corpus callosum body, involving the thalami and right temporal lobe, and extending caudally along the right corticospinal tract into the brainstem. Signal abnormality in the right temporal lobe demonstrates heterogeneous enhancement and diffusion restriction. 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 2. Unremarkable MRA of the head. Dictated by Fish Saenz MD @ 07/18/2025 12:57:52 PM (Electronically Signed)
[2025-07-18] MEDS: POTASSIUM CHLORIDE 40 MEQ in 0.9 % SODIUM CHLORIDE 1000 ml 1,000 ML 125 MEQ IV (03:11)
--- NOTE | 2025-07-18 04:32 | PC.NURSE ---
Shift note: Patient continue to have left sided weakness. Numbness and paresthesia to both upper and lower extremities. Alert and oriented, vitally stable. Doing well on room air. Ambulated with A1, walker and gb. NPO status maintain pending swallow study.
[2025-07-18] MEDS: LEVOTHYROXINE 50 MCG TABLET PO (06:56)
[2025-07-18] MEDS: FENOFIBRATE 145 MG TABLET PO (08:50)
[2025-07-18] MEDS: LACTOBACILLUS ACIDOPHILUS 1 TABLET 1 TAB PO (08:50)
[2025-07-18] MEDS: ASPIRIN 81 MG TAB.CHEW PO (08:50)
--- NOTE | 2025-07-18 11:28 | CRLHL7_ITS ---
For Patients: As a result of the Century Cures Act, medical imaging exams and procedure reports are released immediately into your electronic medical record. You may view this report before your referring provider. If you have questions, please contact your health care provider. Indication: Left-sided weakness. Technique: Multiplanar multisequence MR imaging of the cervical spine prior to and following intravenous administration of 15 mL Dotarem. Comparison: None. Findings: Artifact degrades the sagittal STIR sequence. The cervical lordosis is maintained vertebral body heights are preserved. No acute fracture or spondylolisthesis. No T1 hypointense lesions. T2 hyperintense signal abnormality extending caudally within the medulla to the cervicomedullary junction. Otherwise, no signal abnormality in the cervical cord. No pathologic intramedullary enhancement. C2-3: Mild facet arthropathy. No spinal canal or neural foraminal narrowing. C3-4: Annular bulge. No spinal canal or neural foraminal narrowing. C4-5: Moderate disc height loss. Posterior disc osteophyte complex. Uncinate spurring. Mild facet arthropathy. Minimal spinal canal narrowing. No neural foraminal narrowing. C5-6: Posterior disc osteophyte complex. Uncinate spurring. Minimal spinal canal narrowing. No neural foraminal narrowing. C6-7: Shallow disc bulge. No spinal canal or neural foraminal narrowing. C7-T1: Mild facet arthropathy. No spinal canal or neural foraminal narrowing Impression: 1. Signal abnormality extending caudally within the medulla to the cervicomedullary junction. Otherwise, no signal abnormality in the cervical cord. No pathologic intramedullary enhancement. 2. Multilevel cervical spondylosis without spinal canal or neural foraminal stenosis. Dictated by Fish Saenz MD @ 07/18/2025 1:31:00 PM (Electronically Signed)
--- NOTE | 2025-07-18 15:17 | REH.OT ---
Attempt x 2 for OT treatment; first attempt pt had just received lunch and second attempt MD wanting to talk with pt and family. Plan to see pt tomorrow(07/19/25)
--- NOTE | 2025-07-18 17:10 | P.DS_ITS ---
Transfer Discharge Sum: Prov Provider Time Seen by Provider: 15:00 Date Seen: 07/18/25 Date of admission: 07/17/25 07:52 Primary care physician: Fide Coyne MD Consults: 07/17/25 02:44 Consult to Physical Therapy [CONS] Routine Comment: Reason(s) for PT Consult:: Balance Assessment Any Restrictions?:: See Comment 07/17/25 02:46 Consult to Occupational Therapy [CONS] Routine Comment: Reason(s) for OT Consult:: Evaluate and Treat Any Restrictions?:: Unknown 07/18/25 Consult to Speech Therapy [CONS] Routine Comment: Reason(s) for Speech Consult:: Speaking Difficulty Attending physician on discharge: Swetha Cason Anticipated date of transfer: 07/18/25 Receiving physician/facility: [facility] DS: Diagnosis Discharge Diagnosis (1) Stroke-like symptoms: Status: Acute Problem details: - Patient is presenting to emergency department with ataxia, loss of balance, weight loss, bilateral numbness and tingling worse on the left side. Patient reports symptoms started about 2 weeks ago however has been worsening and patient now having falls secondary to worsening balance. Plan - admit pt to general medical floor - Will need [facility] MRI with and without contrast to r/o CVA and malignancy due to her remote h/o Breast ca and findings on pre [place] CTA head report. - cont with neuro checks - cont with aspirin as recommended by neurology - Echo, tele monitroing - Pt/OT evaluation for dc planning. - IF BRAIn MRI is negative, may need to consult neurology to consider LP if symptoms persistent after electrolyte and fluid treatment and if MRI does not explain her symptoms. - 07/17 echo obtained today which preliminarily is unremarkable, no PFO bubble study. MRI not available until tomorrow. Due to facial droop and paresthesia along with speech difficulties, will make patient NPO and have speech therapy evaluate tomorrow. I spoke with Dr. Arellano from tele neurology today regarding this patient after he had seen her in consultation via video. I have also reviewed his note in epic. He recommends continuing on daily low-dose aspirin, obtaining an MRI brain with and without contrast along with an MRI of her C- spine with and without contrast, therapy evaluation, keeping her normotensive (no permissive hypertension at this time considering that she is 2-3 weeks out from onset of symptoms), LDL goal less than 70, A1c goal less than 7%, monitoring on telemetry and obtaining an echo, which was done today. He would also like her to follow up with stroke clinic as an outpatient. - 07/18 Mass on MRI, glial features. Transfer for neurooncology and high volume LP. (2) Hypokalemia: Status: Acute Problem details: Was given potassium replacement (3) History of breast cancer: Status: Chronic Problem details: Left sided 2002, s/p bilateral mastectomy, radiation/chemotherapy/tamoxifen/femara (4) Ataxia: Status: Acute Problem details: As above (5) Hypersomnolence disorder: Status: Acute Problem details: It is unclear if she has cataplexy. Narcolepsy seems ruled out by Multiple sleep latency test done 06/28/16 though they noted borderline abnormal mean sleep latency of 10.6 minutes (6) Obesity with body mass index 30 or greater: Status: Chronic (7) Urinary incontinence: Status: Acute Problem details: Chronic, continuous, following complications from bladder laceration during Hysterectomy 2009 (8) Seasonal affective disorder: Status: Acute (9) Obstructive sleep apnea syndrome: Status: Acute Problem details: Moderate TED, severe when supine, by PSG 07/03 (10) Essential hypertension: Status: Acute Problem details: She takes triamterene/hydrochlorothiazide as an outpatient, which I am holding since her blood pressure is normotensive without it and she came in hypokalemic. (11) Hyperlipidemia: Status: Acute Problem details: Continue tricor (12) Type 2 diabetes mellitus: Status: Acute Problem details: originally life-style controlled, Dxed 08/05, metformin started 03/08 (she s topped 03/12 due to loose stools), glipizide started 03/12, semaglutide started 10/12, glipizide stopped 05/13 - Checking HgbA1C, continue ISS (13) Hypothyroidism: Status: Acute Problem details: Continue levothyroxine (14) Anxiety: Status: Acute Problem details: sertraline started 10/07 Transfer Discharge Sum: Med Medications Active and Home Medications: Home Medications levothyroxine 50 mcg tablet 50 mcg PO DAILY #90 tabs 12/02/24 [Rx Confirmed 07/17/25] semaglutide 1 mg/dose (4 mg/3 mL) subcutaneous pen injector 1 mg (0.75 mL) subcut QWEEK #3 mL 05/26/25 [Rx Confirmed 07/17/25] L. crispatus, gasseri, jensenii, rhamnosus 12 billion cell chew tablet ([facility]) 1 tab PO DAILY PRN 07/17/25 [History Confirmed 07/17/25] cholecalciferol (vitamin D3) 25 mcg (1,000 unit) tablet 25 mcg PO DAILY 07/17/25 [History Confirmed 07/17/25] fenofibrate nanocrystallized 145 mg tablet (Tricor) 145 mg PO DAILY 07/17/25 [History Confirmed 07/17/25] sertraline 100 mg tablet 150 mg PO DAILY 07/17/25 [History Confirmed 07/17/25] triamterene 37.5 mg-hydrochlorothiazide 25 mg capsule 1 cap PO DAILY 07/17/25 [History Confirmed 07/17/25] Active Medications Acetaminophen (Acetaminophen 325 Mg Tablet) 650 mg PO Q6H PRN Aspirin (Aspirin 81 Mg Tab.Chew) 81 mg PO DAILY [facility] Last Admin: 07/18/25 08:50 Dose: 81 mg Enoxaparin Sodium (Enoxaparin 40 Mg/0.4 Ml Inj) 40 mg SUBCUT HS [facility] Last Admin: 07/17/25 20:52 Dose: 40 mg Fenofibrate (Fenofibrate 145 Mg Tablet) 145 mg PO DAILY [facility] Last Admin: 07/18/25 08:50 Dose: 145 mg Insulin Aspart (Insulin Aspart 100 Unit/Ml) 0 unit SUBCUT [facility]; Protocol Last Admin: 07/18/25 13:02 Dose: Not Given Lactobacillus Acidophilus (Lactobacillus Acidophilus 1 Tablet) 1 tab PO DAILY [facility] Last Admin: 07/18/25 08:50 Dose: 1 tab Levothyroxine Sodium (Levothyroxine 50 Mcg Tablet) 50 mcg PO DAILY@0730 [facility] Last Admin: 07/18/25 06:56 Dose: 50 mcg Melatonin (Melatonin 3 Mg Tablet) 3 mg PO HS PRN Ondansetron HCl (Ondansetron 2 Mg/Ml Inj) 4 mg IVP Q4H PRN PRN Reason: Nausea Sertraline HCl (Sertraline 100 Mg Tablet) 150 mg PO HS [facility] Last Admin: 07/17/25 20:52 Dose: 150 mg Sodium Chloride (Sodium Chloride 0.9 % (Flush) 10 Ml Syringe) 5 ml IVF .FLUSH PRN Sodium Chloride (Sodium Chloride 0.9 % (Flush) 10 Ml Syringe) 5 ml IVF BID [facility]UM[facility]A Last Admin: 07/18/25 08:47 Dose: Not Given Transfer Discharge Sum: Hosp Hospital Course Hospital course: Jana Catalan is a 70 year old female with a history of breast cancer who presented with ataxia, loss of balance, weight loss, bilateral numbness and tingling worse on the left side. Patient reports symptoms started about 2 weeks ago however has been worsening and patient now having falls secondary to worsening balance. CTA head was done in the emergency department and tele Neurology was consulted by the ER doc recommended further workup including MRI and echocardiogram. Over the weekend the patient's symptoms persisted and fluctuated slightly. Echocardiogram was unremarkable. MRI obtained today is concerning for malignancy. I spoke with Avril Dodge from tele neuro up at [place] who told me that she spoke with the Neurology team and recommended transfer for high volume lumbar puncture and neuro oncology. In discussion with the patient and her family she desired transfer to [place], which has accepted her in transfer for this evening. Time Spent with Patient Time attestation: Total time spent providing and/or coordinating transfer services: Today I spent 40 minutes seeing and discharging the patient, reviewing [facility] and EPIC n otes/diagnostics/labs, discussing the care plan with our care team that includes social work, PT/OT, pharmacy, RT, alf and documenting my impressions and plan in the medical record. Exam Narrative: Exam Narrative: General: No acute distress. Awake, alert, oriented x3. No pallor. No jaundice. Sitting comfortably upright in the bedside chair. Const: Vital Signs, click to edit/add: Vital Signs - 24 hr 07/17/25 18:00 07/17/25 19:00 07/17/25 22:00 Temperature 97.9 F Pulse Rate Pulse Rate [Left P ulse Oximeter] 76 73 73 Respiratory Rate 18 Blood Pressure [Ri ght Arm] 133/89 Pulse Oximetry 95 Oxygen Delivery Me thod Room Air 07/17/25 22:55 07/17/25 22:55 07/17/25 23:00 Temperature 97.9 F Pulse Rate 69 Pulse Rate [Left P ulse Oximeter] 66 66 Respiratory Rate 18 18 Blood Pressure [Ri ght Arm] 149/81 H Pulse Oximetry 95 Oxygen Delivery Me thod Room Air 07/18/25 01:05 07/18/25 02:51 07/18/25 05:42 Temperature 97.9 F Pulse Rate Pulse Rate [Left P ulse Oximeter] 66 67 67 Respiratory Rate 18 Blood Pressure [Ri ght Arm] 134/78 Pulse Oximetry 93 Oxygen Delivery Me thod Room Air 07/18/25 07:37 07/18/25 08:42 07/18/25 13:05 Temperature 98.7 F 97.9 F Pulse Rate 64 Pulse Rate [Left P ulse Oximeter] 79 67 Respiratory Rate 16 16 Blood Pressure [Ri ght Arm] 123/75 136/82 Pulse Oximetry 98 98 Oxygen Delivery Me thod Room Air Room Air 07/18/25 16:27 Temperature 98.2 F Pulse Rate Pulse Rate [Left P ulse Oximeter] 75 Respiratory Rate 16 Blood Pressure [Ri ght Arm] 122/76 Pulse Oximetry 95 Oxygen Delivery Me thod Room Air Transfer Discharge Sum: Data Data Completed and Pending Completed studies during hospitalization: 07/16/2025 EKG sinus rhythm with first-degree AV block, 75 beats per minute, right bundle-branch block, minimal voltage criteria for LVH, maybe normal variant, septal infarct, age undetermined. 07/17/2025 echocardiogram: Normal LV size, borderline wall thickness, normal global systolic RV function with an estimated EF of 55-60%. Right ventricular cavity size is normal, global systolic RV function is normal. No hemodynamically significant valvular disease. Normal estimated RA pressure (3mmHg). No pericardial infusion. No evidence of intra-atrial shunt by color Doppler or agitated saline bubble study. Ordering Physician: Swetha Cason M.D. Date of Service: 07/18/25 Procedure(s): MR cervical spine wo/w con Accession Number(s): [id number] cc: Fide Coyne M.D.; Swetha Cason M.D.~ For Patients: As a result of the 21st Century Cures Act, medical imaging exams and procedure reports are released immediately into your electronic medical record. You may view this report before your referring provider. If you have questions, please contact your health care provider. Indication: Left-sided weakness. Technique: Multiplanar multisequence MR imaging of the cervical spine prior to and following intravenous administration of 15 mL Dotarem. Comparison: None. Findings: Artifact degrades the sagittal STIR sequence. The cervical lordosis is maintained vertebral body heights are preserved. No acute fracture or spondylolisthesis. No T1 hypointense lesions. T2 hyperintense signal abnormality extending caudally within the medulla to the cervicomedullary junction. Otherwise, no signal abnormality in the cervical cord. No pathologic intramedullary enhancement. C2-3: Mild facet arthropathy. No spinal canal or neural foraminal narrowing. C3-4: Annular bulge. No spinal canal or neural foraminal narrowing. C4-5: Moderate disc height loss. Posterior disc osteophyte complex. Uncinate spurring. Mild facet arthropathy. Minimal spinal canal narrowing. No neural foraminal narrowing. C5-6: Posterior disc osteophyte complex. Uncinate spurring. Minimal spinal canal narrowing. No neural foraminal narrowing. C6-7: Shallow disc bulge. No spinal canal or neural foraminal narrowing. C7-T1: Mild facet arthropathy. No spinal canal or neural foraminal narrowing Impression: 1. Signal abnormality extending caudally within the medulla to the cervicomedullary junction. Otherwise, no signal abnormality in the cervical cord. No pathologic intramedullary enhancement. 2. Multilevel cervical spondylosis without spinal canal or neural foraminal stenosis. Dictated by Fish Saenz MD @ 07/18/2025 1:31:00 PM (Electronically Signed) Ordering Physician: Swetha Cason M.D. Date of Service: 07/18/25 Procedure(s): MR angio head wo con Accession Number(s): [id number] cc: Fide Coyne M.D.; Swetha Cason M.D.~ For Patients: As a result of the Century Cures Act, medical imaging exams and procedure reports are released immediately into your electronic medical record. You may view this report before your referring provider. If you have questions, please contact your health care provider. Indication: Loss of balance. Technique: MRI brain: Multiplanar multisequence MR imaging prior to and following intravenous administration of 15 mL Dotarem. MRA head: [id number] imaging. Comparison: CT sinus 09/24/2024. Findings: MRI brain: Multifocal infiltrative and masslike FLAIR hyperintensity involving the supratentorial and infratentorial parenchyma, including notable infiltrative signal extending across the corpus callosum body, as well as involving the posterior right centrum semiovale and paredes radiata, medial and dorsal thalami, central right temporal lobe and right temporal stem, and extending caudally along the right corticospinal tract to involve the right internal capsule posterior limb, right cerebral peduncle, midbrain, miguel, and medulla. Heterogeneous enhancement associated with the aforementioned right temporal signal abnormality measures 4.6 x 1.9 x 1.7 cm (AP/CC/TR) and demonstrates heterogeneous diffusion restriction. There is also ill-defined enhancement within the right centrum semiovale and paredes radiata. Stippled susceptibility in the central right temporal lobe may represent mineralization and/or minimal hemorrhage. Mild diffuse cerebral volume loss. No midline shift or hydrocephalus. No pathologic extra-axial fluid collection. No diffusion restriction to suggest acute infarction. The major arterial flow voids of the skull base are preserved. The globes are symmetric. Minimal ethmoid sinus mucosal thickening. Mastoid air cells are clear. MRA head: The internal carotid, middle cerebral, and anterior cerebral arteries are widely patent. The vertebral, basilar, and posterior cerebral arteries are widely patent. No intracranial aneurysm or high-flow vascular malformation. Impression: 1. Multifocal infiltrative and masslike FLAIR hyperintensity involving the supratentorial and infratentorial parenchyma, including notable signal abnormality extending across the corpus callosum body, involving the thalami and right temporal lobe, and extending caudally along the right corticospinal tract into the brainstem. Signal abnormality in the right temporal lobe demonstrates heterogeneous enhancement and diffusion restriction. 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 2. Unremarkable MRA of the head. Dictated by Fish Saenz MD @ 07/18/2025 12:58:23 PM (Electronically Signed) Quality Measure Queries Stroke Contraindication Not Initiating IV-Tpa: Not indicated (Outside treatment window) Discharge Plan Discharge Disposition: [facility] Date of Admission: 07/17/25 07:52 Attending Provider on Discharge: Swetha Cason Primary Care Provider: Fide Coyne Discharge Orders: Transfer of Care to Other Hospital (ORDER); Ordered 07/18/25 Ordered By: Swetha Cason Oxygen: No Urinary Catheter: No Services not available here: neurosurgery, neurooncology
--- NOTE | 2025-07-18 17:26 | REH.SLP ---
Speech Language Pathology Discharge Summary Reason for therapy discharge: Transferred out of facility. Progress towards therapy goals. Goals not met. See goals in speech therapy notes in [facility] electronic health records. Rehab barriers to achieving goals: transfer on same date as initial evaluation. Therapy Recommendations: Continued therapy is recommended for dysphagia management and cognitive-linguistic evaluation, if consistent with goals of care.
[2025-07-18] MEDS: SERTRALINE 100 MG TABLET 150 MG PO (20:52)
[2025-07-18] MEDS: SODIUM CHLORIDE 0.9 % (FLUSH) 10 ML SYRINGE 5 ML IVF (21:06)
[2025-07-18] MEDS: ENOXAPARIN 40 MG/0.4 ML INJ SUBCUT (21:06)
--- NOTE | 2025-07-18 21:29 | PC.NURSE ---
[id number]: Pt is AOX4. VSS. Pt moves x1 assist gait belt and walker. Pt denies n/v & pain. MD in to provide update & transfer plan. Pt showered w/ ANCELMO. Tele in place. EMS p/u pt. [facility] notified of departure by [facility].
== END 2025-07-18 21:20 | disposition short-term general hospital (02) | DRG 92 ==
LOC: ED 23:52 → MEDSURG 07-17 00:28
PROVIDERS: Admitting Provider Internal Medicine; Emergency Provider Family Medicine; PCP Internal Medicine; Visit Provider Student in an Organized Health Care Education/Training Program
DX: R27.8 Other lack of coordination (principal); F33.9 Major depressive disorder, recurrent, unspecified; R53.1 Weakness; R29.810 Facial weakness; R26.81 Unsteadiness on feet; R47.89 Other speech disturbances; R20.0 Anesthesia of skin; R94.02 Abnormal brain scan; Z91.81 History of falling; G47.10 Hypersomnia, unspecified; E87.6 Hypokalemia; N39.498 Other specified urinary incontinence; R63.4 Abnormal weight loss; E11.65 Type 2 diabetes mellitus with hyperglycemia; G47.33 Obstructive sleep apnea (adult) (pediatric); I10 Essential (primary) hypertension; F41.9 Anxiety disorder, unspecified; Z79.85 Long-term (current) use of injectable non-insulin antidiabetic drugs; E66.9 Obesity, unspecified; Z68.33 Body mass index [BMI] 33.0-33.9, adult; Z85.828 Personal history of other malignant neoplasm of skin; Z85.3 Personal history of malignant neoplasm of breast; Z90.13 Acquired absence of bilateral breasts and nipples; E03.9 Hypothyroidism, unspecified; E78.5 Hyperlipidemia, unspecified; Z79.82 Long term (current) use of aspirin
CPT/HCPCS: 36415; 70496; 70498; 70544; 70553; 72156; 80048; 80061; 81001; 82962; 83036; 83735; 85025; 87086; 92610; 93005; 93306; 97116; 97162; 97165; 97530; 97535; 99285; A9270; A9575; J1650; J2060; J3480; J7030; Q9967

== ENCOUNTER 2025-07-18 21:11 | Outpatient (CLI) | payer MEDICARE, SELFPAY | END 2025-07-18 21:12 | disposition home or self-care (01) | LOC: AMB 07-21 09:23 | PROVIDERS: PCP Internal Medicine; Visit Provider Family Medicine | DX: R22.0 Localized swelling, mass and lump, head (principal); R41.82 Altered mental status, unspecified; E87.6 Hypokalemia; Z85.3 Personal history of malignant neoplasm of breast | CPT/HCPCS: A0425; A0429 ==